=== PATIENT | female | born 1985 | race Caucasian/White ===

== ENCOUNTER 2017-09-27 16:22 | Emergency (ER) | payer BC ==
[2017-09-27 16:32] VITALS: BP 130/76; PULSE 104; TEMP 98; BMI 24.3
--- NOTE | 2017-09-27 16:47 | PDOC ---
History of Present Illness - General History Source: Patient (The patient is a 31 year old female, with a significant past medical history of panic attacks, who presents to the emergency department via walk-in with right foot pain. The patient reports that approx 4 days ago she was walking when she slipped on wet bricks and was able to rebalance herself without falling. However, she reports that s/p the slip she has been having progressively worsening right foot pain. The patient reports she has been wearing a foot brace with mild relief. She reports she has also been taking Advil but reports minimal relief with the Advil. The patient reports the right foot pain as 7/10 and describes the pain as a burning sensation. The patient reports she has an extra bone in both of her feet (she reports her mother has the same extra bone in her feet bilaterally as well). She denies any recent head injury or loss of consciousness. She denies any recent numbness, tingling or loss of sensation. She denies any chest pain or shortness of breath. ) Exam Limitations: No Limitations <Kulwant Tolbert - Last Filed: 09/27/17 17:11> <Michelle Caldera S - Last Filed: 09/27/17 17:53> - General Chief Complaint: Pain, Acute Stated Complaint: N Time Seen by Provider: 09/27/17 16:26 Past History <Kulwant Tolbert - Last Filed: 09/27/17 17:11> - Past Medical History COPD: No - Suicide/Smoking/Psychosocial Hx Smoking History: Current some day smoker Number of Cigarettes Smoked Daily: 1 Information on smoking cessation initiated: Yes 'Breaking Loose' booklet given: 09/27/17 Hx Alcohol Use: Yes Drug/Substance Use Hx: No Substance Use Type: Alcohol <Michelle Caldera S - Last Filed: 09/27/17 17:53> - Past Medical History Allergies/Adverse Reactions: Allergies Allergy/AdvReac Type Severity Reaction Status Date / Time No Known Allergies Allergy Verified 09/27/17 16:23 Home Medications: Ambulatory Orders NK [No Known Home Medication] 09/27/17 Review of Systems - Review of Systems Constitutional: No: Chills, Diaphoresis, Fever, Weakness HEENTM: No: Eye Pain, Blurred Vision Respiratory: No: Cough, Shortness of Breath, Wheezing Cardiac (ROS): No: Chest Pain, Edema, Lightheadedness, Palpitations, Syncope ABD/GI: No: Abdominal Distended, Constipated, Diarrhea, Nausea, Vomiting : No: Burning, Dysuria, Frequency, Hematuria Musculoskeletal: Yes: Muscle Pain (+Right foot pain. ). No: Back Pain, Joint Pain Integumentary: No: Lesions, Rash Neurological: No: Headache, Numbness, Paresthesia, Dizziness Psychiatric: No: Anxiety, Depression Endocrine: No: Intolerance to Cold, Intolerance to Heat, Unexplained Weight Gain , Unexplained Weight Loss Hematologic/Lymphatic: No: Anemia, Easy Bleeding, Easy Bruising <Kulwant Tolbert - Last Filed: 09/27/17 17:11> *Physical Exam - Vital Signs Last Vital Signs Temp Pulse Resp BP Pulse Ox 98 F 104 H 18 130/76 100 09/27/17 16:22 09/27/17 16:22 09/27/17 16:22 09/27/17 16:22 09/27/17 16:22 - Physical Exam General Appearance: Yes: Appropriately Dressed. No: Apparent Distress HEENT: positive: EOMI, GONSALO, Normal ENT Inspection, Normal Voice, Symmetrical, TMs Normal, Pharynx Normal Neck: positive: Trachea midline, Supple. negative: Tender Respiratory/Chest: positive: Lungs Clear, Normal Breath Sounds. negative: Respiratory Distress, Accessory Muscle Use, Crackles, Rales, Rhonchi, Wheezing Cardiovascular: positive: Regular Rhythm, Regular Rate, S1, S2. negative: Edema , JVD, Murmur Gastrointestinal/Abdominal: positive: Normal Bowel Sounds, Soft. negative: Guarding, Rebound, Tenderness Musculoskeletal: positive: Normal Inspection. negative: CVA Tenderness Extremity: positive: Normal Range of Motion, Tender (+Tenderness medial aspect of right foot. ), Swelling (+Swelling medial aspect of right foot.). 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 <Kulwant Toblert - Last Filed: 09/27/17 17:11> - Discharge Dispostion Admit: No <Michelle Caldera - Last Filed: 09/27/17 17:53> Diagnosis at time of Disposition: Right foot sprain Qualifiers: Encounter type: initial encounter Qualified Code(s): S93.601A - Unspecified sprain of right foot, initial encounter - Discharge Dispostion Disposition: HOME Condition at time of disposition: Stable - Patient Instructions Printed Discharge Instructions: DI for Foot Sprain Additional Instructions: Elevation , Ice on and off 30 minutes apart. Follow up with your Orthopedic Doctor. Take the CD with images to your doctor
== END 2017-09-27 18:17 | disposition home or self-care (01) ==
LOC: FER 16:22
DX: S93.601A Unspecified sprain of right foot, initial encounter (principal); X58.XXXA Exposure to other specified factors, initial encounter; Y93.01 Activity, walking, marching and hiking; Y92.9 Unspecified place or not applicable; F17.210 Nicotine dependence, cigarettes, uncomplicated
CPT/HCPCS: 73630-TC-RT-FY; 84703; 99282-25

== ENCOUNTER 2018-12-24 13:05 | Emergency (ER) | payer BC ==
[2018-12-24 13:18] VITALS: BP 125/72; PULSE 103; TEMP 98.7; BMI 24.5
--- NOTE | 2018-12-24 14:11 | PDOC ---
History of Present Illness - General Chief Complaint: Pain Stated Complaint: RIGHT ANKLE PAIN Time Seen by Provider: 12/24/18 13:14 - History of Present Illness Initial Comments: 12/24/18 15:26 33 years old with no significant past medical history presents to the emergency department with three-day history of moderate to severe right ankle pain. Patient has a bone spore distal to her medial malleolus denies any history of trauma but complaining of moderate to severe 8 out of 10 pain especially with movement and weightbearing and while driving. Pain is located just distal to her medial malleolus. Denies fever chills swelling redness or streaking. Symptoms are moderate to severe persistent constant worse with movement. Past History - Past Medical History Allergies/Adverse Reactions: Allergies Allergy/AdvReac Type Severity Reaction Status Date / Time No Known Allergies Allergy Verified 12/24/18 13:07 Home Medications: Ambulatory Orders Alprazolam [Xanax] 0.5 mg PO PRN 12/24/18 COPD: No Other medical history: OLD RIGHT ANKLE INJURY - Suicide/Smoking/Psychosocial Hx Smoking History: Current every day smoker Number of Cigarettes Smoked Daily: 10 Information on smoking cessation initiated: Yes 'Breaking Loose' booklet given: 09/27/17 Hx Alcohol Use: Yes (SOCIAL) Drug/Substance Use Hx: No Substance Use Type: Alcohol Review of Systems - Review of Systems Comments:: 12/24/18 15:26 ROS: A complete review of 10 out of 10 review of systems is taken and is negative apart from what is previously mentioned below and in the HPI. *Physical Exam - Vital Signs Last Vital Signs Temp Pulse Resp BP Pulse Ox 98.7 F 103 H 16 125/72 100 12/24/18 13:07 12/24/18 13:07 12/24/18 13:07 12/24/18 13:07 12/24/18 13:07 - Physical Exam Comments: 12/24/18 15:27 Vitals: Triage Vital signs reviewed General Appearance: no acute distress, well nourished well developed, Head: Atraumatic, Extremities: Full range of motion to all extremities, no cyanosis, clubbing, or edema, tenderness to palpation just distal to the medial malleolus over the deltoid ligament Skin: Warm and dry, no rashes or lesions, no rash, no petechiae Neuro: AOX3; Cranial Nerves 2-12 grossly intact, Strength intact to all extremities, Sensation intact to all extremities,gait normal Psych: normal mood, normal affect Medical Decision Making - Medical Decision Making 12/24/18 15:35 Tenderness palpation over the deltoid ligament of the right ankle. No fracture dislocation noted on x-ray. Likely secondary to tendinitis partly contributed to by bone spur We'll recommend Aircast crutches nonweightbearing orthopedic follow-up Findings, the need for follow-up and strict return instructions discussed with patient. *DC/Admit/Observation/Transfer Diagnosis at time of Disposition: Ankle sprain Qualifiers: Encounter type: initial encounter Involved ligament of ankle: deltoid ligament Laterality: right Qualified Code(s): S93.421A - Sprain of deltoid ligament of right ankle, initial encounter - Discharge Dispostion Condition at time of disposition: Stable Decision to Admit order: No - Referrals Referrals: Diego Way MD [Staff Physician] - - Patient Instructions Printed Discharge Instructions: Ankle Sprain Additional Instructions: Aircast and crutches while ambulating. No weight on ankle. Avoid driving. Ice affected ankle 20 minutes on 20 minutes off. Take naproxen 2 pills twice a day for the next 3 days. Follow-up with Dr. Way orthopedics within 1 week. - Post Discharge Activity
== END 2018-12-24 15:56 | disposition home or self-care (01) ==
LOC: FER 13:05
PROC: 2W3QX1Z Immobilization of Right Lower Leg using Splint (ICD-10-PCS; principal; 2018-12-24)
DX: S93.421A Sprain of deltoid ligament of right ankle, initial encounter (principal); X58.XXXA Exposure to other specified factors, initial encounter; Y93.89 Activity, other specified; Y92.89 Other specified places as the place of occurrence of the external cause; F17.210 Nicotine dependence, cigarettes, uncomplicated
CPT/HCPCS: 73610-TC-RT-FY; 73630-TC-RT-FY; 81025; 99282-25